=== PATIENT | female | born 1945 | race Caucasian/White ===

== ENCOUNTER 2016-07-23 02:06 | Emergency (ER) | payer MEDICARE | END 2016-07-23 04:25 | disposition home or self-care (01) | LOC: FER 02:06 | DX: K05.219 Aggressive periodontitis, localized, unspecified severity (principal); E11.9 Type 2 diabetes mellitus without complications; I10 Essential (primary) hypertension; Z88.1 Allergy status to other antibiotic agents; Z79.82 Long term (current) use of aspirin; Z79.84 Long term (current) use of oral hypoglycemic drugs; Z79.899 Other long term (current) drug therapy; Z98.84 Bariatric surgery status ==

== ENCOUNTER 2016-08-03 13:48 | Emergency (ER) | payer MEDICARE ==
[2016-08-03 14:46] LABS: BASOPHIL 0.4 % (0-2); EOSINOPHIL 0.9 % (0-7); HCT 40.8 % (37.0-47.0); HGB 13.9 g/dl (12.5-16.0); LYMPHOCYTE 25.9 % (15-48); MCH 28.7 pg (25.0-31.0); MCHC 34.1 g/dL (32.0-36.0); MCV 84.3 fL (78.0-100.0); MONOCYTE 8.6 % (0-12); MPV 9.7 fL (6.0-9.5); NEUTROPHIL 64.2 % (41-80); PLT 329 K/uL (150-400); RBC 4.84 M/uL (4.20-5.40); RDW 14.7 % (11.5-14.0); WBC 8.5 K/uL (4.0-10.5)
[2016-08-03 15:02] LABS: ALBUMIN 4.3 g/dL (3.4-4.8); BILIRUBIN - TOTAL 0.3 mg/dL (0.1-1.0); CREATININE 0.9 mg/dL (0.5-1.0); GLOBULIN (CALCULATION) 3.3 g/dL (2.2-4.2); POTASSIUM 3.9 mmol/L (3.5-5.1); TOTAL PROTEIN 7.6 g/dL (6.4-8.3)
== END 2016-08-03 16:54 | disposition home or self-care (01) ==
LOC: FER 13:48
PROVIDERS: Internal Medicine
DX: K29.70 Gastritis, unspecified, without bleeding (principal); I10 Essential (primary) hypertension; E11.9 Type 2 diabetes mellitus without complications; E78.5 Hyperlipidemia, unspecified; Z88.1 Allergy status to other antibiotic agents; Z79.82 Long term (current) use of aspirin; Z79.84 Long term (current) use of oral hypoglycemic drugs; Z79.899 Other long term (current) drug therapy
CPT/HCPCS: 36415; 74022; 80053; 82150; 83690; 84484; 85025; 87339; 93005; J1170; J2405

== ENCOUNTER 2020-06-05 17:01 | Emergency (ER) | payer MEDICARE, OTHER ==
[~2020-06-05 17:01] MED LIST: ASPIRIN EC81 MG PO; JANUVIA50 MG PO; LISINOPRIL-HCT1 EAC1 PO; METFORMIN HCL500 MG PO; MOBIC7.5 MG PO; ZOCOR10 MG PO
[2020-06-05 19:04] LABS: BASOPHIL 0.4 % (0-2); EOSINOPHIL 0.2 % (0-7); HCT 40.4 % (37.0-47.0); HGB 13.2 g/dl (12.5-16.0); LYMPHOCYTE 3.5 % (15-48); MCH 28.6 pg (25.0-31.0); MCHC 32.7 g/dL (32.0-36.0); MCV 87.4 fL (78.0-100.0); MPV 10.3 fL (6.0-9.5); NEUTROPHIL 89.6 % (41-80); NRBC 0; PLT 211 K/uL (150-400); RBC 4.62 M/uL (4.20-5.40); RDW 14.6 % (11.5-14.0); WBC 11.7 K/uL (4.0-10.5)
[2020-06-05 19:21] LABS: ALBUMIN 3.6 g/dL (3.4-5.0); BILIRUBIN - TOTAL 0.6 mg/dL (0.2-1.0); BUN/CREAT RATIO (CALC) 26.7 RATIO; CREATININE 0.75 mg/dL (0.51-0.95); GLOBULIN (CALCULATION) 3.1 g/dL; POTASSIUM 4.2 mmol/L (3.5-5.1); TOTAL PROTEIN 6.7 g/dL (6.4-8.2)
[2020-06-05 19:37] LABS: CORONAVIRUS 2019 SARS-COV-2 NEGATIVE (NEGATIVE); INFLUENZA A NAA NEGATIVE (NEGATIVE)
[2020-06-05 19:47] LABS: AMYLASE 60 U/L (25-115); LIPASE 282 U/L (73-393)
[2020-06-05 20:06] LABS: LACTIC ACID 2.5 mmol/L (0.4-1.9)
[2020-06-05 21:01] LABS: AMPHETAMINES POSITIVE (NEGATIVE); BARBITURATES NEGATIVE (NEGATIVE); BILIRUBIN NEGATIVE (NEGATIVE); BLOOD NEGATIVE Ery/uL (NEGATIVE); CLARITY CLEAR (CLEAR); COLOR YELLOW (YELLOW); ECSTASY (MDMA) NEGATIVE (NEGATIVE); GLUCOSE (U) NORMAL (NORMAL); LEUKOCYTES NEGATIVE Leu/uL (NEGATIVE); MARIJUANA (THC) NEGATIVE (NEGATIVE); METHADONE NEGATIVE (NEGATIVE); NITRITE POSITIVE (NEGATIVE); OPIATES NEGATIVE (NEGATIVE); OXYCODONE NEGATIVE (NEGATIVE); PROTEIN NEGATIVE (NEGATIVE); UROBILINOGEN 0.2 mg/dL (0.2-1.0); pH 5.5 (5.0-9.0)
[2020-06-05 21:05] LABS: BACTERIA 2+; SQUAMOUS EPITHELIAL CELLS RARE
[2020-06-05] MEDS ORDERED: MACROBID100 MG PO (21:07)
== END 2020-06-05 21:47 | disposition home or self-care (01) ==
LOC: FER 17:01
PROVIDERS: Nurse Practitioner Family
DX: R07.89 Other chest pain (principal); N39.0 Urinary tract infection, site not specified; R94.5 Abnormal results of liver function studies; R00.0 Tachycardia, unspecified; R53.83 Other fatigue; R53.81 Other malaise; E11.9 Type 2 diabetes mellitus without complications; I10 Essential (primary) hypertension; Z79.84 Long term (current) use of oral hypoglycemic drugs; Z79.1 Long term (current) use of non-steroidal anti-inflammatories (NSAID); Z79.82 Long term (current) use of aspirin; Z79.899 Other long term (current) drug therapy; Z90.49 Acquired absence of other specified parts of digestive tract; Z20.822 Contact with and (suspected) exposure to COVID-19; Z90.710 Acquired absence of both cervix and uterus; Z88.1 Allergy status to other antibiotic agents; Z98.84 Bariatric surgery status
CPT/HCPCS: 36415; 36600; 71046; 71275; 80053; 80305; 81001; 82150; 82803; 83605; 83690; 84484; 85025; 85379; 87040; 87076; 87088; 87186; 93005; J7030; Q9967; U0002